=== PATIENT | female | born 1935 | race Caucasian/White ===

== ENCOUNTER → 2017-07-03 | Emergency (ER) | payer OTHER ==
[~2017-07-03] VITALS: Ht 157.5 cm; Wt 45.4 kg
[~2017-07-03] MED LIST: CALCITRIOL0.25 MCG; CALCITRIOL0.5 MCG PO; CARDIZEM30 MG PO; CIPRO500 MG; CIPRO500 MG PO; CLONAZEPAM1 MG PO; COUMADIN2 MG; FLUCONAZOLE100 MG PO; GASTRINEX CAPSU1 CAP; INTESTINEX1 CAP; OMEPRAZOLE20 MG; PHENAZOPYRIDIN100 MG; Q-PAP EXTRA ST500 MG; RANITIDINE HCL150 M1; SYNTHROID75 MCG; SYNTHROID75 MCG PO; TRAMADOL HCL-AP1 TAB; ZANTAC150 M3 PO; [UNRECOGNIZED DRUG - OTHER]
== END | disposition home or self-care (01) ==
LOC: ER 10:44
DX: N30.01 Acute cystitis with hematuria (principal); N39.0 Urinary tract infection, site not specified; B96.1 Klebsiella pneumoniae [K. pneumoniae] as the cause of diseases classified elsewhere; E87.1 Hypo-osmolality and hyponatremia; E58 Dietary calcium deficiency

== ENCOUNTER 2017-08-20 08:45 | Outpatient (CLI) | payer OTHER ==
[2017-08-21] MEDS ORDERED: XOPENEX CO1.25 MG/0. IH (12:22)
[2017-08-21] MEDS ORDERED: MEDROLPACK PO (12:22)
== END 2017-08-20 10:36 | disposition home or self-care (01) ==
LOC: RAD 501 08:45
DX: J44.1 Chronic obstructive pulmonary disease with (acute) exacerbation (principal)

== ENCOUNTER → 2017-08-21 | Emergency (ER) | payer OTHER ==
[~2017-08-21] VITALS: Ht 152.4 cm; Wt 43.1 kg
[~2017-08-21] MED LIST changes: +MEDROLPACK PO; +XOPENEX CO1.25 MG/0. IH
== END | disposition home or self-care (01) ==
LOC: ER 09:24
DX: R31.0 Gross hematuria (principal); J40 Bronchitis, not specified as acute or chronic

== ENCOUNTER → 2017-09-16 | Emergency (ER) | payer OTHER ==
[~2017-09-16] VITALS: Ht 152.4 cm; Wt 59.0 kg
== END | disposition home or self-care (01) ==
LOC: ER 12:08
DX: K52.89 Other specified noninfective gastroenteritis and colitis (principal); E83.51 Hypocalcemia

== ENCOUNTER 2017-09-25 21:41 | Inpatient (IN) | payer OTHER ==
[~2017-09-25] VITALS: Ht 149.9 cm; Wt 44.5 kg
[2017-10-15] MEDS ORDERED: PROTONIX40 MG PO (09:43)
[2017-10-15] MEDS ORDERED: CARAFATE1 GM PO (09:44)
[2017-10-15] MEDS ORDERED: COUMADIN1 MG PO (09:46)
== END 2017-10-15 14:46 | disposition home or self-care (01) | DRG 871 ==
LOC: ER 21:41 → MEDJ 09-26 12:06
PROVIDERS: Urology
PROC: BW21Y0Z Computerized Tomography (CT Scan) of Abdomen and Pelvis using Other Contrast, Unenhanced and Enhanced (ICD-10-PCS; 2017-09-26)
PROC: BW24ZZZ Computerized Tomography (CT Scan) of Chest and Abdomen (ICD-10-PCS; 2017-09-26)
PROC: 4A033R1 Measurement of Arterial Saturation, Peripheral, Percutaneous Approach (ICD-10-PCS; 2017-09-26)
PROC: B246ZZZ Ultrasonography of Right and Left Heart (ICD-10-PCS; 2017-09-27)
PROC: BW28ZZZ Computerized Tomography (CT Scan) of Head (ICD-10-PCS; 2017-09-27)
PROC: BW21ZZZ Computerized Tomography (CT Scan) of Abdomen and Pelvis (ICD-10-PCS; 2017-10-03)
PROC: 0T778DZ Dilation of Left Ureter with Intraluminal Device, Via Natural or Artificial Opening Endoscopic (ICD-10-PCS; 2017-10-07)
PROC: BT1FZZZ Fluoroscopy of Left Kidney, Ureter and Bladder (ICD-10-PCS; 2017-10-07)
PROC: 0TF78ZZ Fragmentation in Left Ureter, Via Natural or Artificial Opening Endoscopic (ICD-10-PCS; principal; 2017-10-07 09:00)
PROC: BB24ZZZ Computerized Tomography (CT Scan) of Bilateral Lungs (ICD-10-PCS; 2017-10-10)
PROC: 3E0F7GC Introduction of Other Therapeutic Substance into Respiratory Tract, Via Natural or Artificial Opening (ICD-10-PCS; 2017-10-11)
DX: A41.59 Other Gram-negative sepsis (principal); I50.23 Acute on chronic systolic (congestive) heart failure; D68.8 Other specified coagulation defects; N13.2 Hydronephrosis with renal and ureteral calculous obstruction; B37.49 Other urogenital candidiasis; J90 Pleural effusion, not elsewhere classified; N30.01 Acute cystitis with hematuria; E20.8 Other hypoparathyroidism; D46.Z Other myelodysplastic syndromes; I35.1 Nonrheumatic aortic (valve) insufficiency; I34.0 Nonrheumatic mitral (valve) insufficiency; I27.29 Other secondary pulmonary hypertension; I48.2 Chronic atrial fibrillation; D53.1 Other megaloblastic anemias, not elsewhere classified; F10.20 Alcohol dependence, uncomplicated; K52.89 Other specified noninfective gastroenteritis and colitis; I11.0 Hypertensive heart disease with heart failure; E87.6 Hypokalemia; J45.998 Other asthma; Z95.0 Presence of cardiac pacemaker; Z85.71 Personal history of Hodgkin lymphoma; E03.8 Other specified hypothyroidism

== ENCOUNTER 2017-10-28 13:49 | Emergency (ER) | payer OTHER ==
[~2017-10-28] VITALS: Ht 350.5 cm; Wt 45.4 kg
[~2017-10-28 13:49] MED LIST changes: +CARAFATE1 GM PO; +COUMADIN1 MG PO; +PROTONIX40 MG PO
[2017-10-28] MEDS ORDERED: SYNTHROID75 MCG (14:29)
[2017-10-28] MEDS ORDERED: ROCALTROL0.25 MCG (14:29)
== END 2017-10-28 17:23 | disposition home or self-care (01) ==
LOC: ER 13:49
DX: K52.89 Other specified noninfective gastroenteritis and colitis (principal)

== ENCOUNTER 2017-11-01 11:58 | Inpatient (IN) | payer OTHER ==
[~2017-11-01] VITALS: Ht 157.5 cm; Wt 45.4 kg
[~2017-11-01 11:58] MED LIST changes: +ROCALTROL0.25 MCG
[2017-11-01] MEDS ORDERED: LEVALBUTER0.63 MG/3 (12:18)
[2017-11-09] MEDS ORDERED: COUMADIN1 MG PO (12:44)
[2017-11-09] MEDS ORDERED: ISOSORBIDE MONO30 MG PO (12:45)
[2017-11-09] MEDS ORDERED: XOPENEX0.63 MG/3 IH (12:45)
[2017-11-09] MEDS ORDERED: LISINOPRIL10 MG PO (12:45)
[2017-11-09] MEDS ORDERED: LEVOTHYROXINE75 MCG PO (12:46)
[2017-11-09] MEDS ORDERED: LASIX20 MG PO (12:47)
[2017-11-09] MEDS ORDERED: INTESTINEX680 M1 PO (12:47)
[2017-11-09] MEDS ORDERED: CLONAZEPAM1 MG PO (12:49)
[2017-11-09] MEDS ORDERED: Rocaltrol PO (12:49)
[2017-11-10] MEDS ORDERED: MONTELUKAST SOD10 MG (12:54)
== END 2017-11-09 13:26 | disposition home or self-care (01) | DRG 292 ==
LOC: ER 11:58 → MEDJ 17:13 → MEDI 17:13 → MEDJ 11-02 17:15
PROC: 4A033R1 Measurement of Arterial Saturation, Peripheral, Percutaneous Approach (ICD-10-PCS; 2017-11-01)
PROC: 3E0F7GC Introduction of Other Therapeutic Substance into Respiratory Tract, Via Natural or Artificial Opening (ICD-10-PCS; 2017-11-01)
PROC: B246ZZZ Ultrasonography of Right and Left Heart (ICD-10-PCS; 2017-11-01)
PROC: 4A12X4Z Monitoring of Cardiac Electrical Activity, External Approach (ICD-10-PCS; 2017-11-01)
PROC: 0W993ZX Drainage of Right Pleural Cavity, Percutaneous Approach, Diagnostic (ICD-10-PCS; principal; 2017-11-05)
PROC: BB24ZZZ Computerized Tomography (CT Scan) of Bilateral Lungs (ICD-10-PCS; 2017-11-05)
DX: I11.0 Hypertensive heart disease with heart failure (principal); J90 Pleural effusion, not elsewhere classified; J98.11 Atelectasis; I50.23 Acute on chronic systolic (congestive) heart failure; I48.0 Paroxysmal atrial fibrillation; E03.8 Other specified hypothyroidism; I34.0 Nonrheumatic mitral (valve) insufficiency; I27.29 Other secondary pulmonary hypertension; J45.998 Other asthma; E87.6 Hypokalemia; Z95.0 Presence of cardiac pacemaker; D46.Z Other myelodysplastic syndromes; D63.0 Anemia in neoplastic disease; E83.51 Hypocalcemia

== ENCOUNTER → 2018-08-19 | Outpatient (CLI) | payer OTHER ==
[~2018-08-19] MED LIST changes: +B-STRESS CAP2000 MCG; +INTESTINEX680 M1 PO; +ISOSORBIDE MONO30 MG PO; +LASIX20 MG PO; +LEVALBUTER0.63 MG/3; +LEVOTHYROXINE75 MCG PO; +LISINOPRIL10 MG PO; +MONTELUKAST SOD10 MG; +PNEU16DI2; +PROTONIX40 MG; +Rocaltrol PO; +SYNTHROID50 MCG; +XOPENEX0.63 MG/3 IH; +[UNRECOGNIZED DRUG - OTHER]
== END | disposition home or self-care (01) ==
LOC: NUCLEAR 14:48
DX: I82.402 Acute embolism and thrombosis of unspecified deep veins of left lower extremity (principal)

== ENCOUNTER 2018-08-30 13:35 | Emergency (ER) | payer OTHER ==
[~2018-08-30] VITALS: Ht 147.3 cm; Wt 34.5 kg
[~2018-08-30 13:35] MED LIST changes: -B-STRESS CAP2000 MCG; -PNEU16DI2; -PROTONIX40 MG; -SYNTHROID50 MCG; -[UNRECOGNIZED DRUG - OTHER]
[2018-08-30] MEDS ORDERED: PNEU16DI2 (13:45)
[2018-08-30] MEDS ORDERED: SYNTHROID50 MCG (13:45)
[2018-08-30] MEDS ORDERED: [UNRECOGNIZED DRUG - OTHER] (13:50)
[2018-08-30] MEDS ORDERED: B-STRESS CAP2000 MCG (13:50)
[2018-08-30] MEDS ORDERED: PROTONIX40 MG (13:51)
== END 2018-08-30 16:03 | disposition home or self-care (01) ==
LOC: ER 13:35
DX: S80.812A Abrasion, left lower leg, initial encounter (principal); W22.8XXA Striking against or struck by other objects, initial encounter; Y93.89 Activity, other specified; Y92.018 Other place in single-family (private) house as the place of occurrence of the external cause; Y99.8 Other external cause status

== ENCOUNTER 2018-10-12 14:37 | Outpatient (CLI) | payer OTHER ==
[~2018-10-12 14:37] MED LIST changes: +B-STRESS CAP2000 MCG; +PNEU16DI2; +PROTONIX40 MG; +SYNTHROID50 MCG; +[UNRECOGNIZED DRUG - OTHER]
== END 2018-10-12 14:41 | disposition home or self-care (01) ==
LOC: RAD 14:37
DX: I50.89 Other heart failure (principal)

== ENCOUNTER → 2018-10-15 | Outpatient (CLI) | payer OTHER | END | disposition home or self-care (01) | LOC: NUCLEAR 09:00 | DX: I11.0 Hypertensive heart disease with heart failure (principal) ==

== ENCOUNTER 2018-10-31 11:32 | Emergency (ER) | payer OTHER ==
[~2018-10-31] VITALS: Ht 157.5 cm; Wt 40.8 kg
[2018-10-31] MEDS ORDERED: SYNTHROID75 MCG (12:10)
[2018-10-31] MEDS ORDERED: HYDROCHLOROTH12.5 MG (12:33)
== END 2018-10-31 17:41 | disposition home or self-care (01) ==
LOC: ER 11:32
DX: R60.0 Localized edema (principal); I50.9 Heart failure, unspecified

== ENCOUNTER 2018-11-08 21:50 | Emergency (ER) | payer OTHER ==
[~2018-11-08] VITALS: Ht 157.5 cm; Wt 44.5 kg
[~2018-11-08 21:50] MED LIST changes: +HYDROCHLOROTH12.5 MG
== END 2018-11-08 23:38 | disposition home or self-care (01) ==
LOC: ER 21:50
DX: S42.291A Other displaced fracture of upper end of right humerus, initial encounter for closed fracture (principal); W18.09XA Striking against other object with subsequent fall, initial encounter; Y93.89 Activity, other specified; Y92.018 Other place in single-family (private) house as the place of occurrence of the external cause; Y99.8 Other external cause status

== ENCOUNTER 2018-11-13 12:58 | Emergency (ER) | payer OTHER ==
[~2018-11-13] VITALS: Ht 157.5 cm; Wt 36.3 kg
== END 2018-11-13 14:06 | disposition home or self-care (01) ==
LOC: ER 12:58
DX: M25.511 Pain in right shoulder (principal); S42.291D Other displaced fracture of upper end of right humerus, subsequent encounter for fracture with routine healing; W18.09XD Striking against other object with subsequent fall, subsequent encounter

== ENCOUNTER 2018-11-15 10:07 | Inpatient (IN) | payer OTHER ==
[~2018-11-15] VITALS: Ht 157.5 cm; Wt 37.2 kg
[2018-11-21] MEDS ORDERED: CARDIZEM CD180 MG PO (15:21)
[2018-11-21] MEDS ORDERED: GABAPENTIN100 MG PO (15:23)
[2018-11-21] MEDS ORDERED: ULTRACET PO (15:25)
[2018-11-21] MEDS ORDERED: CIPRO500 MG PO (15:33)
[2018-11-21] MEDS ORDERED: FLAGYL500MG PO (15:33)
== END 2018-11-21 16:10 | disposition home or self-care (01) | DRG 690 ==
LOC: ER 10:07 → MEDJ 18:42
PROVIDERS: ADMIT Internal Medicine
PROC: 30233N1 Transfusion of Nonautologous Red Blood Cells into Peripheral Vein, Percutaneous Approach (ICD-10-PCS; principal; 2018-11-16)
PROC: BW21ZZZ Computerized Tomography (CT Scan) of Abdomen and Pelvis (ICD-10-PCS; 2018-11-20)
PROC: BW24ZZZ Computerized Tomography (CT Scan) of Chest and Abdomen (ICD-10-PCS; 2018-11-20)
DX: N39.0 Urinary tract infection, site not specified (principal); S42.391A Other fracture of shaft of right humerus, initial encounter for closed fracture; E87.1 Hypo-osmolality and hyponatremia; D62 Acute posthemorrhagic anemia; K57.32 Diverticulitis of large intestine without perforation or abscess without bleeding; R18.8 Other ascites; J90 Pleural effusion, not elsewhere classified; B96.1 Klebsiella pneumoniae [K. pneumoniae] as the cause of diseases classified elsewhere; B96.89 Other specified bacterial agents as the cause of diseases classified elsewhere; R33.8 Other retention of urine; D46.Z Other myelodysplastic syndromes; I48.0 Paroxysmal atrial fibrillation; C54.1 Malignant neoplasm of endometrium; E83.51 Hypocalcemia; E03.8 Other specified hypothyroidism; I27.29 Other secondary pulmonary hypertension; W18.39XA Other fall on same level, initial encounter; I25.10 Atherosclerotic heart disease of native coronary artery without angina pectoris; M81.0 Age-related osteoporosis without current pathological fracture; R25.2 Cramp and spasm; R06.02 Shortness of breath; J44.9 Chronic obstructive pulmonary disease, unspecified; F17.210 Nicotine dependence, cigarettes, uncomplicated; Z95.0 Presence of cardiac pacemaker; Z85.72 Personal history of non-Hodgkin lymphomas; Z92.21 Personal history of antineoplastic chemotherapy

== ENCOUNTER 2018-12-06 11:40 | Inpatient (IN) | payer OTHER ==
[~2018-12-06] VITALS: Ht 157.5 cm; Wt 46.3 kg
[~2018-12-06 11:40] MED LIST changes: +CARDIZEM CD180 MG PO; +FLAGYL500MG PO; +GABAPENTIN100 MG PO; +ULTRACET PO
[2018-12-23] MEDS ORDERED: COUMADIN1 MG PO (09:51)
[2018-12-23] MEDS ORDERED: INTEGRA PLUS C1 EACH PO (09:51)
[2018-12-23] MEDS ORDERED: ENALAPRIL MALE2.5 MG PO (09:52)
[2018-12-23] MEDS ORDERED: Coreg 3.125MG TABLET PO (09:52)
[2018-12-23] MEDS ORDERED: ACIDOPHILUS-PE1 EAC2 PO (09:53)
[2018-12-23] MEDS ORDERED: FAMOTIDINE20 MG PO (09:53)
[2018-12-23] MEDS ORDERED: CALCIUM 500 +1 EACH PO (09:53)
[2018-12-23] MEDS ORDERED: Neurin-Sl Tablet Sl SL (09:54)
[2018-12-23] MEDS ORDERED: Rocaltrol PO (09:54)
[2018-12-23] MEDS ORDERED: LEVOTHYROXINE100 MCG PO (09:54)
[2018-12-23] MEDS ORDERED: APETIGEN L790 MG/15 PO (09:55)
[2018-12-23] MEDS ORDERED: LYRICA50 MG PO (09:58)
== END 2018-12-23 12:08 | disposition home or self-care (01) | DRG 309 ==
LOC: ER 11:40 → SURG 20:22 → SURH 12-08 20:39
PROVIDERS: ADMIT Internal Medicine
PROC: 4A12X4Z Monitoring of Cardiac Electrical Activity, External Approach (ICD-10-PCS; 2018-12-06)
PROC: 0T9B70Z Drainage of Bladder with Drainage Device, Via Natural or Artificial Opening (ICD-10-PCS; 2018-12-06)
PROC: B246ZZZ Ultrasonography of Right and Left Heart (ICD-10-PCS; principal; 2018-12-07)
PROC: BW28ZZZ Computerized Tomography (CT Scan) of Head (ICD-10-PCS; 2018-12-08)
PROC: B54MZZZ Ultrasonography of Right Upper Extremity Veins (ICD-10-PCS; 2018-12-09)
PROC: 8E0ZXY6 Isolation (ICD-10-PCS; 2018-12-14)
PROC: BR29ZZZ Computerized Tomography (CT Scan) of Lumbar Spine (ICD-10-PCS; 2018-12-16)
PROC: 4A033R1 Measurement of Arterial Saturation, Peripheral, Percutaneous Approach (ICD-10-PCS; 2018-12-17)
PROC: 3E0F7GC Introduction of Other Therapeutic Substance into Respiratory Tract, Via Natural or Artificial Opening (ICD-10-PCS; 2018-12-17)
PROC: 30233N1 Transfusion of Nonautologous Red Blood Cells into Peripheral Vein, Percutaneous Approach (ICD-10-PCS; 2018-12-18)
DX: I48.1 Persistent atrial fibrillation (principal); S42.291A Other displaced fracture of upper end of right humerus, initial encounter for closed fracture; J90 Pleural effusion, not elsewhere classified; I50.42 Chronic combined systolic (congestive) and diastolic (congestive) heart failure; I13.0 Hypertensive heart and chronic kidney disease with heart failure and stage 1 through stage 4 chronic kidney disease, or unspecified chronic kidney disease; C94.6 Myelodysplastic disease, not elsewhere classified; E44.0 Moderate protein-calorie malnutrition; N39.0 Urinary tract infection, site not specified; M48.56XA Collapsed vertebra, not elsewhere classified, lumbar region, initial encounter for fracture; I08.3 Combined rheumatic disorders of mitral, aortic and tricuspid valves; E87.6 Hypokalemia; E83.51 Hypocalcemia; D63.8 Anemia in other chronic diseases classified elsewhere; R09.02 Hypoxemia; R33.8 Other retention of urine; M48.061 Spinal stenosis, lumbar region without neurogenic claudication; M51.36 Other intervertebral disc degeneration, lumbar region; I11.0 Hypertensive heart disease with heart failure; N18.3 Chronic kidney disease, stage 3 (moderate); E03.8 Other specified hypothyroidism; Z79.01 Long term (current) use of anticoagulants; Z86.73 Personal history of transient ischemic attack (TIA), and cerebral infarction without residual deficits; Z95.0 Presence of cardiac pacemaker; Z85.71 Personal history of Hodgkin lymphoma; Z08 Encounter for follow-up examination after completed treatment for malignant neoplasm; K57.30 Diverticulosis of large intestine without perforation or abscess without bleeding

== ENCOUNTER 2019-01-14 11:50 | Emergency (ER) | payer OTHER ==
[~2019-01-14] VITALS: Ht 152.4 cm; Wt 46.3 kg
[~2019-01-14 11:50] MED LIST changes: +ACIDOPHILUS-PE1 EAC2 PO; +APETIGEN L790 MG/15 PO; +CALCIUM 500 +1 EACH PO; +Coreg 3.125MG TABLET PO; +ENALAPRIL MALE2.5 MG PO; +FAMOTIDINE20 MG PO; +INTEGRA PLUS C1 EACH PO; +LEVOTHYROXINE100 MCG PO; +LYRICA50 MG PO; +Neurin-Sl Tablet Sl SL
== END 2019-01-14 13:50 | disposition home or self-care (01) ==
LOC: ER 11:50
DX: H66.91 Otitis media, unspecified, right ear (principal)

== ENCOUNTER 2019-01-19 12:46 | Outpatient (CLI) | payer OTHER | END 2019-01-19 12:54 | disposition home or self-care (01) | LOC: NUCLEAR 12:46 | DX: M81.0 Age-related osteoporosis without current pathological fracture (principal) ==

== ENCOUNTER 2019-02-28 13:39 | Inpatient (IN) | payer OTHER ==
[~2019-02-28] VITALS: Ht 152.4 cm; Wt 37.6 kg
[2019-03-01] MEDS ORDERED: ABANEU-SL TABL1 EACH (08:12)
[2019-03-01] MEDS ORDERED: CARVEDILOL3.125 MG PO (08:13)
[2019-03-01] MEDS ORDERED: CALCITRIOL0.5 MCG PO (08:14)
== END 2019-03-26 13:25 | disposition expired | DRG 480 ==
LOC: ER 13:39 → SURH 19:28 → SEC-K 19:28 → SURG 19:28 → ICU 19:28 → SURG 22:15 → MEDI 03-01 16:53 → SURG 03-01 17:05 → SURH 03-02 16:52 → O/R 03-03 11:22 → ICU 03-04 01:57 → MEDJ 03-11 21:02 → ICU 03-15 14:15 → SURH 03-25 19:15
PROVIDERS: Orthopaedic Surgery; ADMIT Internal Medicine
PROC: 02HV33Z Insertion of Infusion Device into Superior Vena Cava, Percutaneous Approach (ICD-10-PCS; 2019-02-28)
PROC: 30233N1 Transfusion of Nonautologous Red Blood Cells into Peripheral Vein, Percutaneous Approach (ICD-10-PCS; 2019-03-01)
PROC: B246ZZZ Ultrasonography of Right and Left Heart (ICD-10-PCS; 2019-03-01)
PROC: 8E0ZXY6 Isolation (ICD-10-PCS; 2019-03-02)
PROC: 0QS706Z Reposition Left Upper Femur with Intramedullary Internal Fixation Device, Open Approach (ICD-10-PCS; principal; 2019-03-02 12:00)
PROC: 3E0F7GC Introduction of Other Therapeutic Substance into Respiratory Tract, Via Natural or Artificial Opening (ICD-10-PCS; 2019-03-06)
PROC: 4A033R1 Measurement of Arterial Saturation, Peripheral, Percutaneous Approach (ICD-10-PCS; 2019-03-10)
PROC: 4A12X4Z Monitoring of Cardiac Electrical Activity, External Approach (ICD-10-PCS; 2019-03-10)
PROC: BW41ZZZ Ultrasonography of Abdomen and Pelvis (ICD-10-PCS; 2019-03-16)
PROC: 3E0336Z Introduction of Nutritional Substance into Peripheral Vein, Percutaneous Approach (ICD-10-PCS; 2019-03-16)
PROC: B54MZZZ Ultrasonography of Right Upper Extremity Veins (ICD-10-PCS; 2019-03-19)
DX: S72.142A Displaced intertrochanteric fracture of left femur, initial encounter for closed fracture (principal); R65.20 Severe sepsis without septic shock; E87.2 Acidosis; N39.0 Urinary tract infection, site not specified; E87.1 Hypo-osmolality and hyponatremia; I13.0 Hypertensive heart and chronic kidney disease with heart failure and stage 1 through stage 4 chronic kidney disease, or unspecified chronic kidney disease; M80.00XA Age-related osteoporosis with current pathological fracture, unspecified site, initial encounter for fracture; D62 Acute posthemorrhagic anemia; I50.20 Unspecified systolic (congestive) heart failure; J95.89 Other postprocedural complications and disorders of respiratory system, not elsewhere classified; J91.8 Pleural effusion in other conditions classified elsewhere; N17.8 Other acute kidney failure; B96.29 Other Escherichia coli [E. coli] as the cause of diseases classified elsewhere; B95.2 Enterococcus as the cause of diseases classified elsewhere; B95.61 Methicillin susceptible Staphylococcus aureus infection as the cause of diseases classified elsewhere; Z66 Do not resuscitate; L89.521 Pressure ulcer of left ankle, stage 1; E86.0 Dehydration; D63.1 Anemia in chronic kidney disease; D46.Z Other myelodysplastic syndromes; E87.6 Hypokalemia; E83.51 Hypocalcemia; I48.0 Paroxysmal atrial fibrillation; N18.9 Chronic kidney disease, unspecified; R33.8 Other retention of urine; Z85.72 Personal history of non-Hodgkin lymphomas; I34.0 Nonrheumatic mitral (valve) insufficiency; E03.8 Other specified hypothyroidism; I27.29 Other secondary pulmonary hypertension; J44.9 Chronic obstructive pulmonary disease, unspecified